=== PATIENT | male | born 1990 | race Caucasian/White ===

== ENCOUNTER 2017-03-02 10:26 | Emergency (ER) | payer SELFPAY ==
[2017-03-02 11:49] LABS: % IMMATURE GRANULYOCYTES 0.3 % (0.0-1.1); ABSOLUTE IMMATURE GRANULOCYTES 0.02 10^3/uL (0.00-0.10); ADD DIFF? NO; ADD MORPH? NO; ADD SCAN? NO; ATYPICAL LYMPHOCYTE FLAG 0 (0-99); FRAGMENT RBC FLAG 0 (0-99); HEMATOCRIT 47.6 % (40.0-51.0); HEMOGLOBIN 17.3 g/dL (13.7-17.5); LEFT SHIFT FLG 0 (0-99); LIPEMIA HEMOLYSIS FLAG 90 (0-99); MEAN CELL HEMOGLOBIN 30.5 pg (27.9-34.1); MEAN CELL HEMOGLOBIN CONCENTR. 36.3 g/dL (32.4-36.7); MEAN PLATELET VOLUME 10.4 fL (8.7-11.7); PLATELET CLUMPS FLAG 20 (0-99); PLATELET COUNT 283 10^3/uL (150-400); RED BLOOD CELL COUNT 5.67 10^6/uL (4.40-6.38); RED CELL DISTRIBUTION WIDTH 12.1 % (11.5-15.2)
[2017-03-02 11:55] LABS: ANION GAP 17 mEq/L (8-16); CALCIUM 10.5 mg/dL (8.5-10.4); CARBON DIOXIDE 22 mEq/l (22-31); CHLORIDE 104 mEq/L (97-110); GLOMERULAR FILTRATION RATE > 60; GLUCOSE 149 mg/dL (70-100); POTASSIUM 3.9 mEq/L (3.5-5.2); SODIUM 143 mEq/L (134-144)
--- NOTE | 2017-03-02 11:59 | CPEKG ---
Heart Rate: 96 RR Interval: 625 P-R Interval: 164 QRSD Interval: 90 QT Interval: 348 QTC Interval: 440 P [place]: 80 QRS [place]: 63 T Wave [place]: 72 EKG Severity - NORMAL ECG - EKG Impression: SINUS RHYTHM Electronically Signed By: Karen Ruby 02-Mar-2017 17:57:16
--- NOTE | 2017-03-02 12:14 | EDPHY ---
HPI/HX/ROS/PE/MDM Narrative: CHIEF COMPLAINT: Headache, syncope HISTORY OF PRESENT ILLNESS: The patient is a 26 y/o male arriving for evaluation of what sounds like a syncopal event while showering this morning. Last night around 19:00 he developed a headache that wrapped around the back and top of his head. He describes this as head pressure and an 8/10 in severity. He took Tylenol and drank water before going to bed. When waking this morning, he continued to have a headache, but only 4/10 in severity. He took Advil PM for it this morning. He got in the shower shortly after 07:00 this morning and felt a little chilled. He then woke up on the floor of the shower with no memory of how he got there feeling nauseated and in a "cold sweat." He got out of the shower around 07:45 and believes he was unconscious for most of the time between 07:00-07:45. He denies injury from the collapse. He does not remember any preceding symptoms including chest pain, palpitations, dyspnea, or lightheadedness. He has previously passed out for a few seconds during anxiety attacks, but states the event this morning felt much different and lasted much longer. He denies history of seizures, recent head trauma, recent illness or ill contacts. No family history of aneurysms. No recent drug or alcohol use. No fever, chills, vision changes, chest pain, shortness of breath, palpitations , abdominal pain, vomiting, diarrhea, urinary complaints, lightheadedness. REVIEW OF SYSTEMS: Aside from elements discussed in the HPI, a comprehensive 10-point review of systems was reviewed and is negative. 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 No illicit drugs. No alcohol, marijuana, or cigarette use yesterday. VITAL SIGNS: Reviewed by me GENERAL: Well-developed, well-nourished, resting comfortably in no respiratory distress. HEENT: Atraumatic. Eyes: No icterus, no injection. Mouth: moist mucous membranes. No erythema or lesions. Neck: supple with no adenopathy. LUNGS: Clear to auscultation bilaterally, no wheezes, rhonchi or rales. CARDIAC: Regular rate and rhythm, no rubs, murmurs or gallops. ABDOMEN: Soft, nontender, nondistended, bowel sounds normal. BACK: No CVA tenderness. EXTREMITIES: No trauma. No edema. Range of motion is normal throughout. NEURO: Alert and oriented, grossly nonfocal. SKIN: Warm and dry, no rash. PSYCHIATRIC: Normal mentation, no agitation. Portions of this note were transcribed by a hospitalist medical director. I personally performed a history, physical exam, medical decision making, and confirmed accuracy of information the transcribed note. ED Course: This is a normally healthy 26 y/o male who presents with a 1-day history of a headache for evaluation of a sudden syncopal episode this morning. He cannot remember losing consciousness and thinks he may have been unconscious for most of a 45-minute period. His exam is unremarkable. Plan for IV, labs, EKG, chest x -ray, and head CT. 500mL IV NS and 50mcg IV Fentanyl administered. The 12 lead EKG was interpreted by myself. See hard copy and/or "tracemaster" electronic copy for interpretation. Chest x-ray and head CT are unremarkable. Reassessed patient and discussed work up. His labs, EKG, and imaging are all normal. He will be discharged with standard syncope and headache care and follow up instructions. Return precautions discussed. He agrees with plan. MDM: After history was obtained, and the physical exam performed, a differential for patient's presenting complaint of headache and syncope was considered including , but not limited to, subarachnoid hemorrhage, migraine headache, vasovagal syncope, arrhythmia, dehydration, and blood loss. - Data Points Imaging Results: Imaging Impressions Chest X-Ray 03/02/17 12:30 IMPRESSION: Normal chest x-ray. Head CT 03/02/17 12:30 Impression: 1. Normal CT brain without contrast. 2. Consider MRI of the brain, if there is continued clinical concern. Findings and recommendations discussed with Emergency Department physician, Karen Ruby MD at 13:05 hour, 03/02/2017. Final report concurs with initial preliminary interpretation. Imaging: Discussed imaging studies w/ special procedure tech Radiologist, I viewed and interpreted images myself Laboratory Results: Laboratory Results 03/02/17 11:14 03/02/17 11:14 03/02/17 03/02/17 03/02/17 11:14 11:14 11:14 WBC 7.19 10^3/uL 10^3/uL (3.80-9.50) RBC 5.67 10^6/uL 10^6/uL (4.40-6.38) Hgb 17.3 g/dL g/dL (13.7-17.5) Hct 47.6 % % (40.0-51.0) MCV 84.0 fL fL (81.5-99.8) MCH 30.5 pg pg (27.9-34.1) MCHC 36.3 g/dL g/dL (32.4-36.7) RDW 12.1 % % (11.5-15.2) Plt Count 283 10^3/uL 10^3/uL (150-400) MPV 10.4 fL fL (8.7-11.7) Neut % (Auto) 78.1 % H % (39.3-74.2) Lymph % (Auto) 14.7 % L % (15.0-45.0) [place] % (Auto) 6.0 % % (4.5-13.0) Eos % (Auto) 0.3 % L % (0.6-7.6) Baso % (Auto) 0.6 % % (0.3-1.7) Nucleat RBC Rel Count 0.0 % % (0.0-0.2) Absolute Neuts (auto) 5.62 10^3/uL 10^3/uL (1.70-6.50) Absolute Lymphs (auto) 1.06 10^3/uL 10^3/uL (1.00-3.00) Absolute Monos (auto) 0.43 10^3/uL 10^3/uL (0.30-0.80) Absolute Eos (auto) 0.02 10^3/uL L 10^3/uL (0.03-0.40) Absolute Basos (auto) 0.04 10^3/uL 10^3/uL (0.02-0.10) Absolute Nucleated RBC 0.00 10^3/uL 10^3/uL (0-0.01) Immature Gran % 0.3 % % (0.0-1.1) Immature Gran # 0.02 10^3/uL 10^3/uL (0.00-0.10) Sodium 143 mEq/L mEq/L (134-144) Potassium 3.9 mEq/L mEq/L (3.5-5.2) Chloride 104 mEq/L mEq/L (97-110) Carbon Dioxide 22 mEq/l mEq/l (22-31) Anion Gap 17 mEq/L H mEq/L (8-16) BUN 15 mg/dL mg/dL (7-23) Creatinine 1.0 mg/dL mg/dL (0.7-1.3) Estimated GFR > 60 Glucose 149 mg/dL H mg/dL (70-100) Calcium 10.5 mg/dL H mg/dL (8.5-10.4) Troponin I < 0.012 ng/mL ng/mL (0.000-0.034) Medications Given: Discontinued Medications Fentanyl (Sublimaze) 50 mcg IVP EDNOW ONE Stop: 03/02/17 12:31 Last Admin: 03/02/17 12:58 Dose: 50 mcg Sodium Chloride (Ns) 500 mls @ 1,000 mls/hr IV EDNOW ONE PRN Reason: Protocol Stop: 03/02/17 13:00 Last Admin: 03/02/17 12:59 Dose: 500 mls General Time Seen by Provider: 03/02/17 12:10 Initial Vital Signs: Initial Vital Signs Temperature (C) 36.6 C 03/02/17 10:28 Heart Rate 108 H 03/02/17 10:28 Respiratory Rate 16 03/02/17 10:28 Blood Pressure 123/94 H 03/02/17 10:28 O2 Sat (%) 98 03/02/17 10:28 O2 Delivery Mode Room Air Allergies/Adverse Reactions: No Known Allergies Allergy (Unverified 03/02/17 10:31) Home Medications: Medication Instructions Recorded NK [No Known Home Meds] 03/02/17 Departure - Departure Disposition: Home, Routine, Self-Care Clinical Impression: Syncope Qualifiers: Syncope type: unspecified Qualified Code(s): R55 - Syncope and collapse Headache Qualifiers: Headache type: other headache syndrome Qualified Code(s): G44.89 - Other headache syndrome Condition: Good Instructions: Syncope (ED), Acute Headache (ED) Additional Instructions: 1. Take Tylenol or ibuprofen as directed on the packaging as needed for headache over the next few days. 2. Increase fluid intake. 3. Follow up with a primary care provider for unimproved symptoms this week. You 've been referred to Dr. Lovell locally. 4. Return for recurrent symptoms or worsening of condition. Referrals: Beba Lovell MD [Medical Doctor] - As per Instructions [facility],. [Clinic] - As per Instructions Report Scribed for: Karen Ruby Report Scribed by: Shaila Nunez Date of Report: 03/02/17 Time of Report: 12:30
[2017-03-02] MEDS ORDERED: fentaNYL 100 MCG/2 ML INJ IVP ONE (12:30)
[2017-03-02] MEDS ORDERED: NS 500 ML IV ONE (12:31)
[2017-03-02 14:10] VITALS: BP 111/79; PULSE 84; RESP 18; TEMP 97.7; O2SAT 99
== END 2017-03-02 14:14 | disposition home or self-care (01) ==
DX: R55 Syncope and collapse (principal); G44.89 Other headache syndrome; E86.9 Volume depletion, unspecified
CPT/HCPCS: 96374; J3010